=== PATIENT | male | born 1955 | race Caucasian/White ===

== ENCOUNTER 2019-11-20 09:51 | Emergency (ER) | payer BC ==
[2019-11-20 11:54] VITALS: BP 158/81
== END 2019-11-20 12:28 | disposition home or self-care (01) ==
LOC: UCCORT 09:51

== ENCOUNTER 2020-10-11 16:18 | Inpatient (IN) ==
[2020-10-11] MEDS ORDERED: Iodixanol (CONTRAST) 320 MG/ML 100 ML SDV IV ONE (16:44)
[2020-10-11] MEDS ORDERED: Ondansetron 4 mg VIAL 2 MG/ML 2 ml VIAL IV PRN (17:17)
[2020-10-11] MEDS ORDERED: Morphine 2 MG/ML SYRINGE IV PRN (17:27)
[2020-10-11] MEDS ORDERED: Metoprolol Tartrate 5 mg VIAL 5 ml VIAL (1 mg/ml) IV PRN (17:51)
[2020-10-11] MEDS: NS 0.9% 1000 ml BAG 1,000 ML IV SCH (18:29)
[2020-10-11] MEDS: Fluconazole 400 MG IVPREMIX 400 MG/200 ML BAG IVPB SCH (20:43)
[2020-10-11] MEDS: Enoxaparin 40 MG/0.4 ML SYR SUBCUT SCH (20:43)
[2020-10-12 06:17] LABS: ABS Basophils 0.1 10^3/ul (0-0.2); ABS Eosinophils 0.2 10^3/ul (0-0.6); ABS Lymphocytes 1.4 10^3/ul (1.0-4.8); ABS Monocytes 1.1 10^3/ul (0-0.8); ABS Neutrophils 6.3 10^3/ul (1.5-7.7); Hematocrit 44 % (42-52); Hemoglobin 15.3 g/dL (14.0-18.0); Lymphocyte % 15.8 %; Mean Corpuscular HGB Conc 35 g/dL (31-36); Mean Corpuscular Hemoglobin 30 pg (27-31); Mean Corpuscular Volume 86 fL (80-94); Mean Platelet Volume 8.3 fL (7.4-10.4); Nucleated Red Blood Cells % 0.1; Platelet Count 259 10^3/uL (150-450); Red Blood Count 5.09 10^6 /uL (4.18-5.48); Red Cell Distribution Width 17 % (10-15)
[2020-10-12 06:34] LABS: Albumin 3.7 g/dL (3.2-5.2); Albumin/Globulin Ratio 1.2 (1-3); BUN/Creatinine Ratio 12.9 (8-20); Calcium 8.7 mg/dL (8.6-10.3); EGFR African American 61.7 (>60); Globulin 3.2 g/dL (2-4); Potassium 3.6 mmol/L (3.5-5.0); Total Bilirubin 0.5 mg/dL (0.2-1.0); Total Protein 6.9 g/dL (6.4-8.9)
[2020-10-12] MEDS: NS 0.9% 1000 ml BAG 1,000 ML IV SCH ×2 (07:27→16:19)
[2020-10-12] MEDS: Dextrose 50% Syringe 50 ml 25 GM/50 ML SYRINGE IV PUSH PRN (07:51)
[2020-10-12 10:14] LABS: C Reactive Protein 99.35 mg/L (<8.01)
[2020-10-12 11:20] LABS: Erythrocyte Sed Rate 49 mm/Hr (0-19)
[2020-10-12] MEDS: Enoxaparin 40 MG/0.4 ML SYR SUBCUT SCH (19:53)
[2020-10-12] MEDS: Fluconazole 400 MG IVPREMIX 400 MG/200 ML BAG IVPB SCH (19:54)
[2020-10-13] MEDS: NS 0.9% 1000 ml BAG 1,000 ML IV SCH (04:35)
[2020-10-13] MEDS: D5W 1/2 NS 1000 ml BAG 1,000 ML IV SCH (16:07)
[2020-10-13] MEDS: Dextrose 50% Syringe 50 ml 25 GM/50 ML SYRINGE IV PUSH PRN (16:51)
[2020-10-13] MEDS: Enoxaparin 40 MG/0.4 ML SYR SUBCUT SCH (20:12)
[2020-10-13] MEDS: Fluconazole 400 MG IVPREMIX 400 MG/200 ML BAG IVPB SCH (20:12)
[2020-10-14] MEDS: D5W 1/2 NS 1000 ml BAG 1,000 ML IV SCH (05:03)
[2020-10-14 11:21] VITALS: BP 153/84
== END 2020-10-14 13:38 | disposition home or self-care (01) | DRG 282 ==
LOC: IMG 16:18 → MEDTELE 17:17
PROVIDERS: ADMIT Internal Medicine Hematology & Oncology; ATTEND Internal Medicine Hematology & Oncology